=== PATIENT | male | born 1995 | race African-American/Black ===

== ENCOUNTER 2018-10-13 05:04 | Emergency (ER) | payer OTHER ==
[~2018-10-13] VITALS: Ht 170.2 cm; Wt 70.5 kg
[2018-10-13] MEDS ORDERED: LIDOCAINE 1% 10 ML VIAL INJ ONE (06:30)
[2018-10-13 06:59] VITALS: BP 135/82
== END 2018-10-13 07:10 | disposition home or self-care (01) ==
LOC: EMS 05:04
DX: S01.81XA Laceration without foreign body of other part of head, initial encounter (principal); W18.09XA Striking against other object with subsequent fall, initial encounter; Y93.89 Activity, other specified; Y92.89 Other specified places as the place of occurrence of the external cause; Y99.8 Other external cause status
CPT/HCPCS: 12011; 99283; J3490